=== PATIENT | female | born 1970 | race Caucasian/White ===

== ENCOUNTER → 2020-04-07 10:50 | Outpatient (BNVA) | payer OTHER, SELFPAY | PROVIDERS: PCP Internal Medicine; Referring Provider Internal Medicine; Visit Provider Surgery | DX: Z76.89 Persons encountering health services in other specified circumstances (principal) ==

== ENCOUNTER → 2020-04-21 08:18 | Outpatient (BNVA) | payer OTHER, SELFPAY | PROVIDERS: PCP Family Medicine; Referring Provider Family Medicine; Visit Provider Surgery | DX: Z76.89 Persons encountering health services in other specified circumstances (principal) ==

== ENCOUNTER 2020-04-22 12:14 | Outpatient (REF) | payer OTHER, SELFPAY ==
[2020-04-23 13:53] LABS: H Pylori Breath Test NOT DETECTED (NOT DETECTED)
== END 2020-04-22 12:15 | disposition home or self-care (01) ==
LOC: HO.LNP 12:14
PROVIDERS: PCP Family Medicine; Visit Provider Physician Assistant
DX: A04.8 Other specified bacterial intestinal infections (principal)
CPT/HCPCS: 83013

== ENCOUNTER → 2020-05-05 08:24 | Outpatient (BNVA) | payer OTHER, SELFPAY | PROVIDERS: PCP Family Medicine; Referring Provider Family Medicine; Visit Provider Dietitian, Registered | DX: Z76.89 Persons encountering health services in other specified circumstances (principal) ==

== ENCOUNTER 2020-05-12 10:40 | Outpatient (REF) | payer OTHER, SELFPAY ==
--- NOTE | 2020-05-12 11:13 | ECG_ITS ---
Test Reason : CP Blood Pressure : / mmHG Vent. Rate : 063 BPM Atrial Rate : 063 BPM P-R Int : 152 ms QRS Dur : 082 ms QT Int : 428 ms P-R-T Axes : 062 059 025 degrees QTc Int : 437 ms Normal sinus rhythm Normal ECG No previous ECGs available Referred By: Lindsay Cole Electronically Signed By:NAA COMER MD
--- NOTE | 2020-05-12 11:26 | XR_ITS ---
EXAMINATION: XR CHEST CLINICAL INFORMATION: Shortness of breath COMPARISON: None TECHNIQUE: 2 views of the chest were obtained. FINDINGS: The cardiac and mediastinal contours are normal. The lungs are clear. There is no pleural effusion or pneumothorax. There are degenerative changes of the spine. XR/XR chest 2V IMPRESSION: No evidence for acute disease in the chest.
[2020-05-12 11:29] LABS: MANUAL DIFF FLAG NO
[2020-05-12 11:42] LABS: Basophils Percent Auto 0.5 % (0-2); Eosinophils Absolute Auto 0.3 X10*3/uL (0.0-0.4); Eosinophils Percent Auto 3.9 % (0-4); Hematocrit 46.6 % (37-47); Hemoglobin 15.4 g/dl (12.0-16.0); Imm Gran Abs Auto 0.01 X10*3/uL (0.00-0.03); Imm Gran Pct Auto 0.2 % (0.0-0.4); Lymphocytes Absolute Auto 1.5 X10*3/uL (1.2-4.9); Lymphocytes Percent Auto 23.3 % (20-40); Mean Corpuscular Volume 87.8 fL (80-98); Mean Platelet Volume 12.5 fL (9.4-12.3); Monocytes Absolute Auto 0.8 X10*3/uL (0.1-1.2); Monocytes Percent Auto 11.6 % (2-11); Neutrophils Absolute Auto 3.9 X10*3/uL (2.0-8.3); Neutrophils Percent Auto 60.5 % (45-73); Platelet Count 206 X10*3/uL (160-400); Red Blood Count 5.31 X10*6/uL (4.20-5.50); Red Cell Distribution Width 13.5 % (11.0-16.0); White Blood Count 6.5 X10*3/uL (4.8-10.8)
[2020-05-12 12:22] LABS: Vitamin B12 525 pg/mL (200-900)
[2020-05-12 12:56] LABS: Alanine Aminotransferase 28 U/L (0-31); Albumin Level 4.2 g/dL (3.5-5.0); Alkaline Phosphatase 85 U/L (39-117); Anion Gap 14 (12-20); Aspartate Amino Transferase 24 U/L (5-31); Bilirubin Total 0.5 mg/dL (0.0-1.0); Blood Urea Nitrogen 25 mg/dL (9-16); C Reactive Protein 3.42 mg/dL (< or = 0.50); Carbon Dioxide 21 mmol/L (22-29); Chloride 106 mmol/L (96-108); Cholesterol 228 mg/dL; Estimated Glomerular Filt Rate > 60; Glucose Fasting 98 mg/dL (60-99); HDL Cholesterol 40 mg/dL; Iron 87 mcg/dL (30-160); LDL Cholesterol Calculated 162 mg/dl; Percent Iron Saturation 26 % (15-50); Potassium 4.3 mmol/l (3.3-5.1); Sodium 137 mmol/L (135-145); Total Iron Binding Capacity 333 mcg/dL (228-428); Total Protein 7.5 g/dL (6.5-8.0); Triglycerides 131 mg/dL; Unsaturated Iron Binding 246 ug/dL
[2020-05-12 13:16] LABS: Thyroid Stimulating Hormone 2.52 uIU/mL (0.32-4.0); Vitamin D 25-OH Total 31.6 ng/mL (>30)
[2020-05-13 17:01] LABS: Calcium (PTHI) 9.1 mg/dL (8.6-10.2); PTHI 53 pg/mL (14-64)
[2020-05-15 06:43] LABS: Zinc 92 mcg/dL (60-130)
[2020-05-16 08:12] LABS: Vitamin B1 <6 nmol/L (8-30)
[2020-05-16 22:23] LABS: Vitamin A 61 mcg/dL (38-98)
== END 2020-05-12 10:41 | disposition home or self-care (01) ==
LOC: HO.LAB 10:40
PROVIDERS: PCP Family Medicine; Visit Provider Surgery
DX: Z01.818 Encounter for other preprocedural examination (principal); R07.9 Chest pain, unspecified
CPT/HCPCS: 36415; 71046; 80053; 80061; 82306; 82607; 83540; 83970; 84425; 84443; 84590; 84630; 85025; 86140; 93005

== ENCOUNTER → 2020-05-19 10:25 | Outpatient (BNVA) | payer OTHER, SELFPAY | PROVIDERS: PCP Family Medicine; Referring Provider Family Medicine; Visit Provider Surgery ==

== ENCOUNTER → 2020-05-27 08:09 | Outpatient (BNVA) | payer OTHER, SELFPAY | PROVIDERS: PCP Family Medicine; Visit Provider Dietitian, Registered ==

== ENCOUNTER → 2020-06-12 10:51 | Outpatient (BNVA) | payer OTHER, SELFPAY | PROVIDERS: PCP Family Medicine; Visit Provider Surgery ==

== ENCOUNTER → 2020-07-03 10:37 | Outpatient (BNVA) | payer OTHER, SELFPAY | PROVIDERS: PCP Family Medicine; Visit Provider Surgery ==

== ENCOUNTER → 2020-07-17 10:28 | Outpatient (BNVA) | payer OTHER, SELFPAY | PROVIDERS: PCP Family Medicine; Visit Provider Physician Assistant ==

== ENCOUNTER → 2020-08-04 09:42 | Outpatient (BNVA) | payer OTHER, SELFPAY | PROVIDERS: PCP Family Medicine; Visit Provider Surgery ==

== ENCOUNTER 2020-08-13 06:10 | Inpatient (IN) | payer OTHER, SELFPAY ==
[2020-08-01 10:46] VITALS: BMI 41.0
--- NOTE | 2020-08-04 11:31 | ECG_ITS ---
Test Reason : R06.02 SOB Blood Pressure : / mmHG Vent. Rate : 051 BPM Atrial Rate : 051 BPM P-R Int : 152 ms QRS Dur : 088 ms QT Int : 458 ms P-R-T Axes : 046 055 027 degrees QTc Int : 422 ms Sinus bradycardia Otherwise normal ECG When compared with ECG of 12-MAY-2020 11:20, No significant change was found Referred By: Lindsay Cole Electronically Signed By:NAA COMER MD
[2020-08-04 11:52] LABS: MANUAL DIFF FLAG NO
[2020-08-04 12:00] LABS: Basophils Percent Auto 0.5 % (0-2); Eosinophils Absolute Auto 0.3 X10*3/uL (0.0-0.4); Eosinophils Percent Auto 3.1 % (0-4); Hematocrit 46.2 % (37-47); Hemoglobin 15.1 g/dl (12.0-16.0); Imm Gran Abs Auto 0.02 X10*3/uL (0.00-0.03); Imm Gran Pct Auto 0.2 % (0.0-0.4); Lymphocytes Absolute Auto 1.6 X10*3/uL (1.2-4.9); Mean Corpuscular HGB Conc 32.7 g/dl (31.0-35.0); Mean Corpuscular Hemoglobin 28.8 pg (27.0-33.0); Mean Corpuscular Volume 88.2 fL (80-98); Mean Platelet Volume 11.9 fL (9.4-12.3); Monocytes Absolute Auto 0.7 X10*3/uL (0.1-1.2); Monocytes Percent Auto 8.1 % (2-11); Neutrophils Absolute Auto 5.6 X10*3/uL (2.0-8.3); Neutrophils Percent Auto 69.1 % (45-73); Platelet Count 235 X10*3/uL (160-400); Red Blood Count 5.24 X10*6/uL (4.20-5.50); Red Cell Distribution Width 13.8 % (11.0-16.0); White Blood Count 8.2 X10*3/uL (4.8-10.8)
[2020-08-04 12:13] LABS: Prothrombin Time 12.4 SEC (10.8-13.0)
[2020-08-04 12:16] LABS: Partial Thromboplastin Time 37.1 SEC (24.1-38.0)
[2020-08-04 12:34] LABS: Albumin Level 4.2 g/dL (3.5-5.0); Anion Gap 13 (12-20); Blood Urea Nitrogen 22 mg/dL (9-16); Carbon Dioxide 25 mmol/L (22-29); Chloride 104 mmol/L (96-108); Creatinine Clr Calc Pharmacy 95.1; Estimated Glomerular Filt Rate > 60; Glucose Random 92 mg/dL (60-115); Potassium 4.4 mmol/L (3.3-5.1); Sodium 138 mmol/L (135-145)
[2020-08-04 13:29] LABS: Glucose Urine UA NEG (NEG); Leukocyte Esterase Urine NEG (NEG); Nitrite Urine NEG (NEG); PH 5.5 (5.0-8.0); Specific Gravity - Urine >= 1.030 (1.005-1.025); Urine Blood NEG (NEG); Urine Ketones NEG (NEG); Urine Protein NEG (NEG-TRACE)
[2020-08-04 13:37] LABS: Appearance Urine CLEAR; Color Urine YELLOW
[2020-08-04 13:38] LABS: UPreg QC Valid YES; Urine Pregnancy NEGATIVE (NEGATIVE)
[2020-08-11 08:26] LABS: Vitamin B1 6 nmol/L (8-30)
--- NOTE | 2020-08-11 15:38 | MHC.SHP ---
Pre-Procedural Eval Section B Chief Complaint: obesity Allergies: Allergies Allergy/AdvReac Type Severity Reaction Status Date / Time amoxicillin Allergy Mild Hives Verified 08/04/20 10:37 hydrochlorothiazide AdvReac Mild elevated Verified 08/04/20 10:37 creatinine Plan I have reviewed the history and physical and performed a pertinent physical examination on my patient. No changes have occurred unless specified.
--- NOTE | 2020-08-12 09:18 | HO.ANESPROP2 ---
Documented by User: Chelo Brooks 08/12/20 09:19 HPI - Anesthesia Eval Consult details Narrative: 50yo F for Gastric Bypass Laprascopic PMFSH Active Problems Active Problems: All Active Problems (Updated 08/01/20 @ 10:48 by Mulu Xavier) Morbid obesity due to excess calories (Acute) Preoperative examination (Acute) Shortness of breath (Acute) Vitamin B1 deficiency (Acute) BMI 40.0-44.9, adult (Acute) Past Medical History Medical History (Updated 08/13/20 @ 07:49 by Ellen Williamson) Bipolar II disorder BMI 40.0-44.9, adult COVID-19 vaccine administered Elevated cholesterol Endometriosis GERD (gastroesophageal reflux disease) HTN (hypertension) Hypothyroidism Obstructive sleep apnea Family History Family History Father Chronic emphysema syndrome High cholesterol Prediabetes Mother Multiple sclerosis Hypertension Brother Heart attack High cholesterol Surgical History Surgical History Hx laparoscopic cholecystectomy Hx of hysterectomy Social History Social History Are you a primary customer care agent to a significant other at home: No Do you presently have visiting nurse or other home services: No Alcohol intake: current Alcohol intake frequency: holidays/special occasions only Smoking Status: Never smoker Use of substances other than those prescribed or required for medical reasons: No Have you been hit, kicked, punched, or otherwise hurt by someone within the past year? If so, by whom?: No Advance Directives Information Provided: No Recently lost weight without trying: No Meds Allergies Allergy/AdvReac Type Severity Reaction Status Date / Time amoxicillin Allergy Mild Hives Verified 08/04/20 10:37 hydrochlorothiazide AdvReac Mild elevated Verified 08/04/20 10:37 creatinine Home Medications Medication Instructions Recorded Confirmed Last Taken Type amlodipine 5 mg tablet 5 mg PO DAILY 04/07/20 08/04/20 08/13/20 History cariprazine 1.5 mg capsule 1.5 mg PO DAILY 04/07/20 08/04/20 08/13/20 History fluoxetine 40 mg capsule 40 mg PO DAILY 04/07/20 08/04/20 08/13/20 History levothyroxine 50 mcg capsule 50 mcg PO DAILY 04/07/20 08/04/20 08/13/20 History quetiapine 100 mg tablet 100 mg PO BEDTIME 04/07/20 08/04/20 Unknown History cholecalciferol (vitamin D3) 50 50 mcg PO DAILY 04/21/20 08/04/20 Unknown History mcg (2,000 unit) capsule Exam Exam Date and Time: August 12, 2020 0918 Height,Weight and Vital Signs: Height 5 ft 6.5 in Weight 117.027 kg Pertinent Lab Results Pertinent Lab Results: Laboratory Tests 08/04/20 08/04/20 08/04/20 11:20 11:20 11:20 WBC 8.2 RBC 5.24 Hgb 15.1 Hct 46.2 MCV 88.2 MCH 28.8 MCHC 32.7 RDW 13.8 Plt Count 235 MPV 11.9 Immature Gran % (Auto) 0.2 Neut % (Auto) 69.1 Lymph % (Auto) 19.0 L [place] % (Auto) 8.1 Eos % (Auto) 3.1 Baso % (Auto) 0.5 Lymph # (Auto) 1.6 [place] # (Auto) 0.7 Eos # (Auto) 0.3 Baso # (Auto) 0.0 Abs Immat Gran (auto) 0.02 Absolute Neuts (auto) 5.6 Absolute Nucleated RBC 0.000 Nucleated RBC % (auto) 0.0 PT 12.4 INR 1.0 APTT 37.1 Sodium Potassium Chloride Carbon Dioxide Anion Gap BUN Creatinine Estim Creat Clear Calc Estimated GFR Random Glucose Calcium Albumin Vitamin B1 Urine Color YELLOW Urine Appearance CLEAR Urine pH 5.5 Ur Specific [place] >= 1.030 H Urine Protein NEG Urine Glucose (UA) NEG Urine Ketones NEG Urine Blood NEG Urine Nitrite NEG Ur Leukocyte Esterase NEG Urine Test Blood Type Antibody Screen 08/04/20 08/04/20 08/04/20 11:20 11:20 11:20 WBC RBC Hgb Hct MCV MCH MCHC RDW Plt Count MPV Immature Gran % (Auto) Neut % (Auto) Lymph % (Auto) [place] % (Auto) Eos % (Auto) Baso % (Auto) Lymph # (Auto) [place] # (Auto) Eos # (Auto) Baso # (Auto) Abs Immat Gran (auto) Absolute Neuts (auto) Absolute Nucleated RBC Nucleated RBC % (auto) PT INR APTT Sodium 138 Potassium 4.4 Chloride 104 Carbon Dioxide 25 Anion Gap 13 BUN 22 H Creatinine 0.94 Estim Creat Clear Calc 95.1 Estimated GFR > 60 Random Glucose 92 Calcium 9.0 Albumin 4.2 Vitamin B1 6 L Urine Color Urine Appearance Urine pH Ur Specific [place] Urine Protein Urine Glucose (UA) Urine Ketones Urine Blood Urine Nitrite Ur Leukocyte Esterase Urine Test NEGATIVE Blood Type Antibody Screen 08/04/20 11:20 WBC RBC Hgb Hct MCV MCH MCHC RDW Plt Count MPV Immature Gran % (Auto) Neut % (Auto) Lymph % (Auto) [place] % (Auto) Eos % (Auto) Baso % (Auto) Lymph # (Auto) [place] # (Auto) Eos # (Auto) Baso # (Auto) Abs Immat Gran (auto) Absolute Neuts (auto) Absolute Nucleated RBC Nucleated RBC % (auto) PT INR APTT Sodium Potassium Chloride Carbon Dioxide Anion Gap BUN Creatinine Estim Creat Clear Calc Estimated GFR Random Glucose Calcium Albumin Vitamin B1 Urine Color Urine Appearance Urine pH Ur Specific [place] Urine Protein Urine Glucose (UA) Urine Ketones Urine Blood Urine Nitrite Ur Leukocyte Esterase Urine Test Blood Type A Negative Antibody Screen NEGATIVE Narrative Narrative: EKG 07/2020 Vent. Rate : 051 BPM Atrial Rate : 051 BPM P-R Int : 152 ms QRS Dur : 088 ms QT Int : 458 ms P-R-T Axes : 046 055 027 degrees QTc Int : 422 ms Sinus bradycardia Otherwise normal ECG When compared with ECG of 12-MAY-2020 11:20, No significant change was found Assessment and Plan Assessment Anesthesia Assessment: Chart Reviewed Documented by User: Ellen Williamson 08/13/20 07:52 [facility] Past Medical History Medical History (Updated 08/13/20 @ 07:49 by Ellen Williamson) Bipolar II disorder BMI 40.0-44.9, adult COVID-19 vaccine administered Elevated cholesterol Endometriosis GERD (gastroesophageal reflux disease) HTN (hypertension) Hypothyroidism Obstructive sleep apnea Family History Family History Father Chronic emphysema syndrome High cholesterol Prediabetes Mother Multiple sclerosis Hypertension Brother Heart attack High cholesterol Family history of problems with anesthesia: No Surgical History Surgical History Hx laparoscopic cholecystectomy Hx of hysterectomy History of Problems with Anesthesia: No Social History Social History Are you a primary customer care agent to a significant other at home: No Do you presently have visiting nurse or other home services: No Alcohol intake: current Alcohol intake frequency: holidays/special occasions only Smoking Status: Never smoker Use of substances other than those prescribed or required for medical reasons: No Have you been hit, kicked, punched, or otherwise hurt by someone within the past year? If so, by whom?: No Advance Directives Information Provided: No Recently lost weight without trying: No Meds Allergies Allergy/AdvReac Type Severity Reaction Status Date / Time amoxicillin Allergy Mild Hives Verified 08/04/20 10:37 hydrochlorothiazide AdvReac Mild elevated Verified 08/04/20 10:37 creatinine Home Medications Medication Instructions Recorded Confirmed Last Taken Type amlodipine 5 mg tablet 5 mg PO DAILY 04/07/20 08/04/20 08/13/20 History cariprazine 1.5 mg capsule 1.5 mg PO DAILY 04/07/20 08/04/20 08/13/20 History fluoxetine 40 mg capsule 40 mg PO DAILY 04/07/20 08/04/20 08/13/20 History levothyroxine 50 mcg capsule 50 mcg PO DAILY 04/07/20 08/04/20 08/13/20 History quetiapine 100 mg tablet 100 mg PO BEDTIME 04/07/20 08/04/20 Unknown History cholecalciferol (vitamin D3) 50 50 mcg PO DAILY 04/21/20 08/04/20 Unknown History mcg (2,000 unit) capsule Exam Height,Weight and Vital Signs: Vital Signs Temp Pulse Resp BP Pulse Ox 08/13/20 06:21 96.4 F L 63 18 116/63 96 Laboratory Results - last 24 hr 08/13/20 06:03 COVID-19 (MARTHA) Negative COVID-19 Clin Com See Note Airway Mallampati Class: III TM Dist: >3cm Neck ROM: Full Loose/Missing/Broken Teeth: Yes (1 top right) Heart: RRR Lungs: CTAB Assessment and Plan Assessment Anesthesia Assessment: Anesthesia Plan Discussed and Chart Reviewed Final Anesthetic Review NPO: Yes ASA Class: III Final Preanesthetic Review: No Changes in Pt Med Stat, Meds/Allgs Chart Reviewed, Consent Obtained/Reviewed and Anes Risks/Benef Reviewed Patient Risk: Intermediate Procedure Risk: Intermediate Assessment/Block/Sedation in SS: Assess/Block/Sedation-SS Anesthetic Plan Anesthetic Plan: GA Disposition: Inp. Admit - Standard Bed
[2020-08-13] VITALS (12 sets, daily range): BP systolic 116–141; BP diastolic 63–84; PULSE 63–94; RESP 12–20; TEMP 35.8–37; O2SAT 93–99
[2020-08-13] MEDS: Lactated Ringers 1,000 ML 100 ML IVCONT (06:36)
[2020-08-13 06:38] LABS: COVID-19 Test Negative (Negative); IDNOW Serial# 9DD0AD1C
--- NOTE | 2020-08-13 12:30 | PM.OP ---
Brief Operative Note Date of Service: 08/13/20 Pre-op diagnosis: Morbid obesity, BMI 40.3, GERD, hypertension, sleep apnea, hypercholesterolemia Post-op diagnosis: other (Same and hiatal hernia) Procedure: Laparoscopic Cliff-en-Y gastric bypass with 150 cm Cliff limb, hiatal hernia repair, Nicholas block, and intraoperative endoscopy Surgeon: Lindsay Cole MD Anesthesia: GETA Estimated blood loss (mL): 5 Pathology: none sent Condition: stable Disposition: PACU
--- NOTE | 2020-08-13 12:33 | P.OP_ITS ---
Operative Note Operative Note Date of Service: 08/13/20 Narrative: Patient was brought into the operating room and placed on the operating room table in the supine position. General anesthesia was induced. Normal DVT prophylaxis was instituted and the patient received 2 grams of cefotetan preoperatively. The abdomen was then prepped and draped in the normal sterile fashion. A safety time-out was performed. A mixture of 1% lidocaine with epinephrine and ?% Marcaine plain was used to an esthetize the planned incision site in the left upper quadrant. A #11 scalpel was used to make a 5 mm left upper quadrant transverse incision through which a veress needle was placed. Three pops were heard going through the fascia. A saline drop test was used to confirm that the veress needle was intraabdominal. An optiview technique was then used to place a 5mm port in the left upper quadrant. A 5 mm 30 degree laproscope was then placed through this port and the abdominal cavity was surveyed and was normal. The patient was placed in reverse Trendelenburg positioning. A jada liver retractor was then placed in the subxyphoid position and it was used to hold up the left lobe of the liver to the abdominal wall. This was secured to the bed using the liver retractor queen. A NEGRA block was then performed for pain control on the right side of the abdomen. A 5 mm port was placed in the right upper quadrant near the falciform ligament. A 12 mm port was then placed in the mid epigastrium. One additional 5 mm port was placed in the left upper quadrant just to the left of the placement of the first port. I then performed a NEGRA block on the left side of the abdomen. We lifted up the transverse colon mesentery and visualized the ligament of Trietz. I then counted 40 cm from the ligament of Trietz and created a small window in the small bowel mesentery. I then stapled across the antimesenteric surface of the small bowel at the at the 40 cm jesus. The proximal limb is the biliopancreatic limb and the distal transected bowel will be the mariah limb. I divided the mesentery at the 40 cm jesus parallel to the blood vessels in the mesentery for a short distance to be able to bring up the mariah limb to the gastric pouch later. I counted 150 cm from the distally transected bowel and sutured the the mariah limb at 150 cm to the biliopancreatic limb using the endostich and a 2-0 ethibond. I then created 2 enterotomies in the lined up limbs of bowel using the hook cautery. I lengthened the enterotomies using the ligasure device and created a common anastomosis using a 60 mm rolle load endostapler. I stapled the common enterotomy transversely to prevent stricture. I then closed the mesenteric defect at the anastomosis with a 2-0 ethibond running endostich suture. I then created the gastric pouch. I removed the epigastric fat pad and opened up the angle of His. There was a small anterior hiatal hernia. We reapproximated the right and left crura anteriorly with 1 single stitch of 2-0 Ethibond in a laparoscopic knot pusher and there is no residual hiatal hernia.. I gained entry into the lesser sac on the lesser curvature of the stomach by dividing a portion of the pars lucida. I fired a 60 mm purple endostapler transversely across the stomach about 4 cm distal to the GE junction. I then fired an additional 2 firings of a 60 mm purple load stapler vertically up the stomach to the angle of His to complete the gastric pouch. The staple line was hemostatic. I brought the mariah limb up to the gastric pouch and sutured the mariah limb serosa to the gastric pouch serosa posterior to the transverse staple line using a 2-0 ethibond running stitch using the endostitch. I created a gastrotomy and enterotomy in the adjacent mariah limb. I lengthened the gastrotomy and enterotomy using the ligasure. I sutured the posterior wall of the stomach and the mariah limb together using a 0 vicryl running stitch. I sutured the anterior wall of the stomach and mariah limb together using another running 0-vicryl stitch. The the anterior serosa of stomach and mariah limb were sutured using a 2-0 ethibond running stitch for a double layer anterior and posterior closure of the gastrojejunostomy. I then clamped across the mariah limb distal to the anastomosis using a fired 60 mm stapler. I flatted the patient and instilled normal saline around the new anastomosis. I performed an on-talbe endoscopy. The gastric pouch mucosa was pink without any active bleeding the anastomosis was visably patent. I insufflated the gastric pouch and anastomosis. There was no evidence of leak on laparoscopy. I desufflated the gastric pouch and removed the endoscopy. I removed the endostapler from the abdomen and suctioned the fluid from the left upper quadrant. We placed a 10 mm Jake-Gomez drain adjacent to the newly created anastomosis at the gastric jejunum. We brought the tubing out of the right upper quadrant 5 mm port site and secured the tubing to the abdominal wall using a 2-0 nylon suture. We placed this drain to bulb suction. We removed the 12 mm port and closed the defect with a 0 maxon suture and laparoscopic suture passer. We instilled local anesthetic into the fascial closure site and tied the suture down at a pressure of 8-10 mm of Hg. I removed the jada liver retractor and the left upper quadrant ports. There was no evidence active bleeding. I removed the last port and laparoscopy. We reapproximated all skin incisions using 4-0 monocryl subcuticular stitch. We cleaned and dried the skin and applied dermabond to all skin incisions. All counts were correct at the end of the case . There were no complications. The patient was awake and in stable condition prior to extubation and transfer to the recovery room.
[2020-08-13] MEDS: ondansetron HCL 4 MG/2 ML VIAL IVPUSH ×2 (13:02→22:45)
[2020-08-13] MEDS: Lactated Ringers 1,000 ML 150 ML IVCONT ×2 (13:10→19:52)
[2020-08-13] MEDS: Metoclopramide HCl 10 MG/2 ML VIAL IVPUSH (19:52)
[2020-08-13] MEDS: Famotidine/PF 20 MG/2 ML VIAL IVPUSH (21:12)
[2020-08-13] MEDS: 0.9 % Sodium Chloride Flush 3 ML SYRINGE IVFLUSH (21:12)
[2020-08-13] MEDS: cefoTEtan disodium 2 GM in 0.9 % Sodium Chloride 50 ML IV (21:12)
--- NOTE | 2020-08-13 21:36 | P.PNGS_ITS ---
Subjective Subjective Date of Service: 08/14/20 <Betty Cohen PA-C - Last Filed: 08/14/20 12:57> 08/14/20 <Lindsay Cole MD - Last Filed: 08/14/20 09:42> Interval history: POD #1: Patient is doing well. Has been ambulating, using the incentive spirometer, and tolerating po liquids. No nausea or abdominal pain. Has some mild incisional pain. <Betty Cohen PA-C - Last Filed: 08/14/20 12:57> This is a 50-year-old lady on postoperative day 1. Status post laparoscopic Cliff-en-Y gastric bypass with hiatal hernia repair doing well. Patient is tolerating stage II diet without difficulty. She has been up and ambulating in the hallway. She is using her incentive spirometer. Her vital signs and blood work are within normal limits for day 1 after the above-noted surgery. Patient denies nausea vomiting. Her pain is well controlled. On exam: Abdomen is soft nondistended mild appropriate incisional tenderness. Incisions are clean dry intact with Dermabond in place. Jake-Gomez drain in place in right upper quadrant shows scant serosanguineous drainage. Assessment and plan: This is a 50-year-old lady on postoperative day 1. Doing well status post laparoscopic Cliff-en-Y gastric bypass with hiatal hernia repair. Patient will continue stage II diet and then advanced to stage III diet. If she is tolerating stage III diet we will discontinue her Jake-Gomez drain the patient will be discharged home this afternoon. <Lindsay Cole MD - Last Filed: 08/14/20 09:42> Physical Exam Vital Signs: Vital Signs: Last Vital Signs Temp 98.6 F 08/13/20 19:16 Pulse 72 08/13/20 19:16 Resp 20 08/13/20 19:16 BP 130/77 08/13/20 19:16 Pulse Ox 94 08/13/20 19:16 Body Mass Index 41.0 <Betty Cohen PA-C - Last Filed: 08/14/20 12:57> Const: General: cooperative, comfortable, no acute distress, alert and awake <Betty Cohen PA-C - Last Filed: 08/14/20 12:57> Nutritional Appearance: obese <Betty Cohen PA-C - Last Filed: 08/14/20 12:57> GI: Inspection: Yes normal to inspection, Yes incision (normal, slight erythema at site of surgical glue, no tenderness/warmth/drai) and Yes obesity <Betty Cohen PA-C - Last Filed: 08/14/20 12:57> Extrem: Right lower extremity: lower leg Details: no tenderness; no edema <Betty Cohen PA-C - Last Filed: 08/14/20 12:57> Left lower extremity: lower leg Details: no tenderness; no edema <Betty Cohen PA-C Sonali Last Filed: 08/14/20 12:57> Progress Note: A&P Assessment and plan (1) Morbid obesity due to excess calories: Status: Acute <GABRIEL Olivo Last Filed: 08/14/20 12:57> (2) Hiatal hernia: Status: Acute <Betty Cohen PA-C - Last Filed: 08/14/20 12:57> (3) History of repair of hiatal hernia: Status: Acute <GABRIEL Olivo Last Filed: 08/14/20 12:57> (4) Intestinal malabsorption following gastrectomy: Status: Acute <Betty Cohen PA-C Sonali Last Filed: 08/14/20 12:57> (5) S/P gastric bypass: Status: Acute <GABRIEL Olivo Last Filed: 08/14/20 12:57> Assessment and Plan: POD #1: Patient is doing well and will be discharged home today. All the discharge instructions were reviewed with the patient and given in writing. Patient will follow up as scheduled in 2 weeks. <Betty Cohen PA-C - Last Filed: 08/14/20 12:57> Fall Risk Details Current Medications: Current Medications Generic Name Dose Route Start Last Admin Trade Name Freq PRN Reason Stop Dose Admin Famotidine 20 mg 08/13/20 21:00 08/13/20 21:12 Famotidine/Pf 20 Mg/2 Ml Vial IVPUSH 20 mg BID MEY Administration Hydromorphone HCl 0.25 mg 08/13/20 14:27 Hydromorphone Hcl 0.5 Mg/0.5 Ml Syringe IVPUSH Q4H PRN Pain, Severe (Pain Scale 7-10) Lactated Ringer's 1,000 mls @ 150 mls/hr 08/13/20 14:09 08/13/20 19:52 Lr IVCONT 150 mls/hr .[id number] MEY Administration Acetaminophen 1,000 mg in 100 mls @ 16.7 mls/hr 08/13/20 14:27 08/13/20 21:13 Ofirmev IV 08/16/20 14:18 16.7 mls/hr .Q6H MEY Administration Metoclopramide HCl 10 mg 08/13/20 14:27 08/13/20 19:52 Metoclopramide Hcl 10 Mg/2 Ml Vial IVPUSH 10 mg Q6H PRN Administration Nausea Ondansetron HCl 4 mg 08/13/20 14:27 08/13/20 14:38 Ondansetron Hcl 4 Mg/2 Ml Vial IVPUSH Not Given Q8H MEY Sodium Chloride 3 ml 08/13/20 16:00 08/13/20 21:12 0.9 % Sodium Chloride Flush 3 Ml Syringe IVFLUSH 3 ml QSHIFT MEY Administration <Betty Cohen PA-C - Last Filed: 08/14/20 12:57> Time Spent With Patient Time: Total time spent is greater than 50% in coordination of care (as docume nted) at patient's floor/unit and/or counseling patient: <Betty Cohen PA-C - Last Filed: 08/14/20 12:57> Time with patient: less than 15 minutes <Lindsay Cole MD - Last Filed: 08/14/20 09:42>
--- NOTE | 2020-08-13 21:40 | PM.DS ---
DS: Providers Provider Date of Service: 08/14/20 Date of admission: 08/13/20 06:10 Primary care physician: Marta Rubi MD DS: Diagnosis Discharge Diagnosis (1) Morbid obesity due to excess calories: Status: Acute (2) Hiatal hernia: Status: Acute (3) History of repair of hiatal hernia: Status: Acute (4) Intestinal malabsorption following gastrectomy: Status: Acute (5) S/P gastric bypass: Status: Acute DS: Medications Discharge Medications Home Medications: Home Medications Medication Instructions Recorded Confirmed amlodipine 5 mg tablet 5 mg PO DAILY 04/07/20 08/04/20 cariprazine 1.5 mg capsule 1.5 mg PO DAILY 04/07/20 08/04/20 fluoxetine 40 mg capsule 40 mg PO DAILY 04/07/20 08/04/20 levothyroxine 50 mcg capsule 50 mcg PO DAILY 04/07/20 08/04/20 quetiapine 100 mg tablet 100 mg PO BEDTIME 04/07/20 08/04/20 cholecalciferol (vitamin D3) 50 50 mcg PO DAILY 04/21/20 08/04/20 mcg (2,000 unit) capsule Previous Rx's Medication Instructions Recorded docusate sodium 100 mg capsule 100 mg PO BID #30 cap 08/04/20 famotidine 20 mg tablet 20 mg PO DAILY #30 tab 08/04/20 ondansetron HCl 4 mg tablet 4 mg PO Q6H PRN #30 tab 08/04/20 simethicone 80 mg chewable tablet 80 mg PO TID-QID PRN #30 tab 08/04/20 DS: Summary Time Spent with Patient Time attestation: Total time spent providing and/or coordinating discharge services: Discharge coordination time: Greater than 30 minutes Physical Exam Vital Signs: Vital Signs: Last Vital Signs Temp 98.6 F 08/13/20 19:16 Pulse 72 08/13/20 19:16 Resp 20 08/13/20 19:16 BP 130/77 08/13/20 19:16 Pulse Ox 94 08/13/20 19:16 Body Mass Index 41.0 DS: Data Data Completed and Pending Labs on day of discharge: Laboratory Results - last 24 hr 08/13/20 06:03 COVID-19 ([facility]) Negative COVID-19 Clin Com See Note Discharge Plan Discharge Patient Disposition: Home, Self-Care Discharge Diagnosis: obesity s/p lap gastric bypass Referrals: Marta Rubi MD [Primary Care Provider] - 1 Week Discharge Medications: Continued cholecalciferol (vitamin D3) 50 mcg (2,000 unit) capsule 50 mcg PO DAILY RF: 0 ondansetron HCl [Zofran] 4 mg tablet 4 mg PO Q6H PRN (Reason: nausea and vomiting) Qty: 30 RF: 1 famotidine [Pepcid AC] 20 mg tablet 20 mg PO DAILY Qty: 30 RF: 1 docusate sodium [Colace] 100 mg capsule 100 mg PO BID Qty: 30 RF: 1 simethicone [Gas Relief (simethicone)] 80 mg tablet,chewable 80 mg PO TID-QID PRN (Reason: abdominal distention) Qty: 30 RF: 1 levothyroxine 50 mcg capsule 50 mcg PO DAILY RF: 0 Vraylar 1.5 mg capsule 1.5 mg PO DAILY RF: 0 fluoxetine 40 mg capsule 40 mg PO DAILY RF: 0 quetiapine [Seroquel] 100 mg tablet 100 mg PO BEDTIME RF: 0 amlodipine 5 mg tablet 5 mg PO DAILY RF: 0 Discharge Orders: Discharge Order (Routine); Ordered 08/14/20 Ordered By: Betty Cohen Diet: other Activity on Discharge: No heavy lifting Stand Alone Forms: Patient Portal Discharge page Activity Restrictions/Additional Instructions: Discharge Instructions 1. Please call your doctor or come back to the emergency room should any new symptoms arise. 2. You will receive a courtesy call from [facility] 24-48 hours after discharge. 3. Activity: abstain from alcohol, practice limited stair climbing, no bending, no driving, no exercise, no illicit substances, no lifting, no sex, no tub bath, no work. 4. Diet: continue stage 3 protein shakes until your [address] Cole. 5. Dressing Change/Wound Care: Your incision is covered by surgical glue. If the area is tender, you may apply an ice pack for short intervals (no more than 20 minutes on, followed by at least 20 minutes off). Do not apply heat. Do not use creams, lotions, or topical antibiotics unless instructed to do so by your surgeon. These can cause infection or allergic reaction. 6. Call your doctor if: - Your temperature exceeds 101.5 F - You experience excessive pain or swelling - You have an unexpected reaction to medication - You have excessive bleeding - You experience continued vomiting/nausea - Your incision begins to separate - Your incision shows signs of infection such as increased redness, swelling, excessive pain, heat, or drainage (light blood or clear fluid is normal) 7. General instructions: - No lifting greater than 5 lbs for the next 4 weeks. - No driving within 24 hours of taking narcotic pain medications. - If you do not move your bowels in the next 2 days, please take milk of magnesia over the counter. Please follow the post op diet and do not advance your diet until you are seen in the office in about 2 weeks. - Please walk around your home every hour or two to prevent blood clots from forming in your legs. You do not need to wake from sleeping to walk. - Please sleep in a bed or couch to prevent kinking at the hips and knees. - Please take your incentive spirometer (your lung adult basic studies teacher) home with you and use it for the next few days to prevent pneumonias. - You may shower, no hot tubs, baths or swimming pools. - Please call the office with any questions or concerns such as increasing abdominal pain, fever, chills, shortness of breath, chest pain, leg pain or swelling, or redness or drainage from your incisions. - Please stay on stage 3 diet which includes sugar free clear liquids such as ice pops and jello and broth and crystal light. Avoid all carbonation. Please drink 3 protein shakes with at least 25-30 grams of protein daily or 3 of the Celebrate 4:1 shakes which can be purchased in our office. The Celebrate shakes have all of the bariatric vitamins you need if you consume these shakes. If you are drinking other protein shakes, you will need to purchase the Celebrate multivitamins and calcium that we provide in the office (they will provide all the vitamins you need). Please make sure you are consuming at least 40-60 ounces of water in addition to your 3 protein shakes daily. 8. Do not hesitate to contact the office with any questions at . Discharge Summary Admitting Diagnosis: Morbid obesity, BMI 40.3, GERD, hypertension, sleep apnea, hypercholesterolemia Discharge Diagnosis: other (Same and hiatal hernia) Procedure Performed: Laparoscopic Cliff-en-Y gastric bypass with 150 cm Cliff limb, hiatal hernia repair, Nicholas block, and intraoperative endoscopy Discharge Medications: 1. Simethicone 80mg tablet chewable (Si tablet every 6 hours orally for 7 days, #28, 1 RF) q4h prn gas 2. Acetaminophen 500 mg tablet (Si tablets as needed every 6 hours orally for 30 days, #240, 0 RF) 3. Ondansetron 4 mg tablet disintegrating (Si tablet every 6 hours orally for 7 days, #28, 1 RF) 4. Colace 100 mg capsule (Si capsule twice a day for 30 days, #60, 2 RF) 5. Pepcid 20 mg chewable tablet (Si tablet twice a day for 30 days, #60, 3 RF) Discharge Instructions: The patient should continue on the stage III bariatric diet, which includes 3 protein shakes of at least 20-30g of protein on a daily basis. The patient was encouraged to avoid drinking liquids with her protein shakes. They should wait 30-45 minutes in between her meals and drinking water. She should drink at least 40-60 ounces of water on a daily basis. They should ambulate while at home to avoid any blood clots in her lower extremities. They should call with any questions or concerns such as increase in abdominal pain, persistent nausea, vomiting, redness and drainage from her incisions, fever, chills, shortness of breast, or chest pain beyond what is normal for her. The patient should avoid all heavy lifting greater than 5 pounds for the next 4 weeks. The patient is already scheduled to follow up with me in 2 weeks time, but should call the office with any questions prior to that follow up appointment. The patient should not advance their diet until they are seen in the office for the 2 week appointment. Hospital Course: The patient was admitted after undergoing LRYGB. They were started on stage II (1 oz of fluid every 15 minutes) on POD #0. The next morning they were evaluated and started on stage III diet (protein shakes). All labs were within normal limits. On post-operative day #1 she was feeling better, nausea and epigastric pain improved and they were tolerating stage III bariatric diet well. The patient was discharged home. Discharge Disposition: Home. Care Plan Goals: weight loss, improved GERD Health Concerns: obesity, GERD Plan of Treatment: LRYGB Assessment: Assessed on post operative day #1 and ready to be discharged home, follow up 2 weeks in office
[2020-08-14] MEDS: Lactated Ringers 1,000 ML 150 ML IVCONT (03:00)
[2020-08-14 03:57] VITALS: BP 137/73; PULSE 69; RESP 20; TEMP 36.4; O2SAT 96
[2020-08-14] MEDS: ondansetron HCL 4 MG/2 ML VIAL IVPUSH (06:28)
[2020-08-14 07:26] LABS: MANUAL DIFF FLAG NO
[2020-08-14 07:36] LABS: Basophils Percent Auto 0.2 % (0-2); Hematocrit 39.6 % (37-47); Hemoglobin 13.3 g/dl (12.0-16.0); Imm Gran Pct Auto 0.6 % (0.0-0.4); Lymphocytes Absolute Auto 0.8 X10*3/uL (1.2-4.9); Lymphocytes Percent Auto 4.3 % (20-40); Mean Corpuscular HGB Conc 33.6 g/dl (31.0-35.0); Mean Corpuscular Hemoglobin 29.4 pg (27.0-33.0); Mean Corpuscular Volume 87.4 fL (80-98); Mean Platelet Volume 12.5 fL (9.4-12.3); Monocytes Absolute Auto 1.2 X10*3/uL (0.1-1.2); Monocytes Percent Auto 6.5 % (2-11); Neutrophils Percent Auto 88.4 % (45-73); Platelet Count 103 X10*3/uL (160-400); Red Blood Count 4.53 X10*6/uL (4.20-5.50); Red Cell Distribution Width 13.8 % (11.0-16.0); White Blood Count 18.1 X10*3/uL (4.8-10.8)
[2020-08-14 08:00] VITALS: BP 132/74; PULSE 61; RESP 16; TEMP 36.4; O2SAT 95
[2020-08-14 08:07] LABS: Anion Gap 13 (12-20); Blood Urea Nitrogen 14 mg/dL (9-16); Calcium 8.2 mg/dL (8.4-10.2); Carbon Dioxide 22 mmol/L (22-29); Chloride 107 mmol/L (96-108); Creatinine Clr Calc Pharmacy 96.2; Estimated Glomerular Filt Rate > 60; Glucose Random 107 mg/dL (60-115); Sodium 138 mmol/L (135-145)
[2020-08-14] MEDS: Famotidine/PF 20 MG/2 ML VIAL IVPUSH (08:31)
[2020-08-14] MEDS: Levothyroxine Sodium 50 MCG TABLET PO (10:25)
[2020-08-14] MEDS: FLUoxetine HCl 20 MG CAPSULE 40 MG PO (10:26)
[2020-08-14 10:27] VITALS: BP 132/64; PULSE 72
[2020-08-14] MEDS: amLODIPine Besylate 5 MG TABLET PO (10:27)
[2020-08-14] MEDS: Cariprazine HCl 1.5 MG CAPSULE PO (11:06)
--- NOTE | 2020-08-14 12:08 | MHC.CM.PN ---
PATIENT IS FULLY INDEPENDENT WITH ALL ADLS. NO DME OR VNA SERVICES. 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 CURRENTLY, PATIENT IS HAVING DRAIN REMOVED. SHE IS AWARE THAT IF SHE HAS ANY QUESTIONS FOR CASE MANAGEMENT, RN CAN ASK FOR THIS CORRECTION OFFICER HEAD. PATIENT IS DC TODAY NO SERVICES
--- NOTE | 2020-08-15 09:44 | HO.POSTANES ---
Post Anesthesia Evaluation Post Anesthesia Evaluation Vital Signs: Patient seen on 08/14/20 at 7am. VSS Anesthesia: General Endotracheal-GETA Mental Status: Awake Pain Control: Satisfactory Nausea/Vomiting: None Hydration: Adequate Anesthesia-Related Issues: No Anes. Related Issues
--- NOTE | 2020-08-15 09:47 | HO.POSTANES ---
Post Anesthesia Evaluation Post Anesthesia Evaluation Vital Signs: Patient seen on 08/14/20 at 715am, VSS Anesthesia: General Endotracheal-GETA Mental Status: Awake Pain Control: Satisfactory Nausea/Vomiting: None Hydration: Adequate Anesthesia-Related Issues: No Anes. Related Issues
--- NOTE | 2020-08-15 09:49 | HO.POSTANES ---
Post Anesthesia Evaluation Post Anesthesia Evaluation Vital Signs: Patient seen on 08/14/20 at 730am, VSS Anesthesia: General Endotracheal-GETA Mental Status: Awake Pain Control: Satisfactory Nausea/Vomiting: None Hydration: Adequate Anesthesia-Related Issues: No Anes. Related Issues
== END 2020-08-14 13:11 | disposition home or self-care (01) | DRG 620 ==
LOC: HO.SSSA 06:11 → HO.S3 13:47
PROVIDERS: Physician Assistant; Admitting Provider Surgery; PCP Family Medicine; Visit Provider Surgery
PROC: 0D164ZA Bypass Stomach to Jejunum, Percutaneous Endoscopic Approach (ICD-10-PCS; principal; 2020-08-13 07:50)
DX: E66.01 Morbid (severe) obesity due to excess calories (principal); F31.81 Bipolar II disorder; Z68.41 Body mass index [BMI] 40.0-44.9, adult; E78.00 Pure hypercholesterolemia, unspecified; E03.9 Hypothyroidism, unspecified; K21.9 Gastro-esophageal reflux disease without esophagitis; Z20.822 Contact with and (suspected) exposure to COVID-19; I10 Essential (primary) hypertension; G47.30 Sleep apnea, unspecified; K44.9 Diaphragmatic hernia without obstruction or gangrene; Z88.0 Allergy status to penicillin; Z79.890 Hormone replacement therapy; Z79.899 Other long term (current) drug therapy
CPT/HCPCS: 36415; 80048; 81003; 81025; 82040; 84425; 85025; 85610; 85730; 86850; 86900; 87635; 93005; 99024; J0131; J1100; J1170; J2250; J2405; J2765; J3010

== ENCOUNTER → 2020-08-28 10:22 | Outpatient (BNVA) | payer OTHER, SELFPAY | PROVIDERS: PCP Family Medicine; Visit Provider Surgery ==

== ENCOUNTER → 2020-09-25 09:06 | Outpatient (BNVA) | payer OTHER, SELFPAY | PROVIDERS: PCP Family Medicine; Visit Provider Physician Assistant ==

== ENCOUNTER → 2020-10-16 08:12 | Outpatient (BNVA) | payer OTHER, SELFPAY | PROVIDERS: PCP Family Medicine; Visit Provider Dietitian, Registered | DX: E66.9 Obesity, unspecified (principal); Z68.34 Body mass index [BMI] 34.0-34.9, adult | CPT/HCPCS: 97803 ==

== ENCOUNTER → 2020-12-11 11:20 | Outpatient (BNVA) | payer OTHER, SELFPAY | PROVIDERS: PCP Family Medicine; Visit Provider Physician Assistant ==

== ENCOUNTER → 2021-02-05 12:57 | Outpatient (BNVA) | payer OTHER, SELFPAY | PROVIDERS: PCP Family Medicine; Visit Provider Surgery | DX: Z01.818 Encounter for other preprocedural examination (principal); K91.2 Postsurgical malabsorption, not elsewhere classified; Z90.3 Acquired absence of stomach [part of] ==

== ENCOUNTER → 2021-03-19 08:11 | Outpatient (BNVA) | payer OTHER, SELFPAY | PROVIDERS: PCP Family Medicine; Visit Provider Dietitian, Registered | DX: E66.3 Overweight (principal); Z68.27 Body mass index [BMI] 27.0-27.9, adult | CPT/HCPCS: 97803 ==

== ENCOUNTER 2021-03-30 11:40 | Outpatient (REF) | payer OTHER, SELFPAY ==
[2021-03-30 12:04] LABS: MANUAL DIFF FLAG NO
[2021-03-30 12:19] LABS: Basophils Percent Auto 0.5 % (0-2); Eosinophils Absolute Auto 0.1 X10*3/uL (0.0-0.4); Hematocrit 44.7 % (37.0-47.0); Hemoglobin 14.5 g/dl (12.0-16.0); Imm Gran Abs Auto 0.01 X10*3/uL (0.00-0.03); Imm Gran Pct Auto 0.2 % (0.0-0.4); Lymphocytes Absolute Auto 1.9 X10*3/uL (1.2-4.9); Lymphocytes Percent Auto 31.3 % (20-40); Mean Corpuscular HGB Conc 32.4 g/dl (31.0-35.0); Mean Corpuscular Hemoglobin 29.8 pg (27.0-33.0); Mean Corpuscular Volume 91.8 fL (80.0-98.0); Mean Platelet Volume 12.8 fL (9.4-12.3); Monocytes Absolute Auto 0.5 X10*3/uL (0.1-1.2); Monocytes Percent Auto 8.1 % (2-11); Neutrophils Absolute Auto 3.6 x10*3/uL (2.0-8.3); Neutrophils Percent Auto 57.9 % (45-73); Platelet Count 169 X10*3/uL (160-400); Red Blood Count 4.87 X10*6/uL (4.20-5.50); Red Cell Distribution Width 13.5 % (11.0-16.0); White Blood Count 6.1 X10*3/uL (4.8-10.8)
[2021-03-30 12:40] LABS: Alanine Aminotransferase 38 U/L (0-31); Albumin Level 4.1 g/dL (3.5-5.0); Alkaline Phosphatase 99 U/L (39-117); Anion Gap 12 (12-20); Aspartate Amino Transferase 39 U/L (5-31); Bilirubin Total 0.9 mg/dL (0.0-1.0); Blood Urea Nitrogen 14 mg/dL (9-16); Calcium 9.7 mg/dL (8.4-10.2); Carbon Dioxide 27 mmol/L (22-29); Chloride 107 mmol/L (96-108); Cholesterol 167 mg/dL; Estimated Glomerular Filt Rate > 60; Glucose Fasting 90 mg/dL (60-99); HDL Cholesterol 43 mg/dL; Iron 128 mcg/dL (30-160); LDL Cholesterol Calculated 107 mg/dl; Percent Iron Saturation 49 % (15-50); Potassium 4.3 mmol/L (3.3-5.1); Sodium 142 mmol/L (135-145); Total Iron Binding Capacity 262 mcg/dL (228-428); Total Protein 6.9 g/dL (6.5-8.0); Triglycerides 86 mg/dL; Unsaturated Iron Binding 134 ug/dL
[2021-03-30 12:55] LABS: Thyroid Stimulating Hormone 2.16 uIU/mL (0.32-4.0)
[2021-03-30 12:58] LABS: Estimated Average Glucose 97 mg/dL; Hemoglobin A1C 149.7319 umol/L
[2021-03-30 13:20] LABS: Vitamin B12 734 pg/mL (200-900)
[2021-04-02 07:02] LABS: Zinc 75 mcg/dL (60-130)
[2021-04-03 00:56] LABS: Vitamin A 37 mcg/dL (38-98)
[2021-04-03 06:05] LABS: Vitamin B1 15 nmol/L (8-30)
== END 2021-03-30 11:41 | disposition home or self-care (01) ==
LOC: HO.LAB 11:40
PROVIDERS: Visit Provider Surgery
DX: Z01.818 Encounter for other preprocedural examination (principal); K91.2 Postsurgical malabsorption, not elsewhere classified; Z90.3 Acquired absence of stomach [part of]
CPT/HCPCS: 36415; 80053; 80061; 82306; 82607; 83036; 83540; 84425; 84443; 84590; 84630; 85025; 86140

== ENCOUNTER 2021-08-26 13:48 | Outpatient (REF) | payer OTHER, SELFPAY ==
[2021-08-26 15:43] LABS: Imm Gran Abs Auto 0.02 X10*3/uL (0.00-0.03); Red Blood Count 4.67 X10*6/uL (4.20-5.50); Red Cell Distribution Width 13.2 % (11.0-16.0); SCAN SMEAR FLAG 1
[2021-08-26 15:45] LABS: Basophils Percent Auto 0.4 % (0-2); Eosinophils Absolute Auto 0.1 X10*3/uL (0.0-0.4); Eosinophils Percent Auto 1.6 % (0-4); Hematocrit 41.5 % (37.0-47.0); Hemoglobin 13.5 g/dl (12.0-16.0); Imm Gran Pct Auto 0.2 % (0.0-0.4); Lymphocytes Absolute Auto 2.5 X10*3/uL (1.2-4.9); Lymphocytes Percent Auto 30.9 % (20-40); MANUAL DIFF FLAG SCAN; Mean Corpuscular HGB Conc 32.5 g/dl (31.0-35.0); Mean Corpuscular Hemoglobin 28.9 pg (27.0-33.0); Mean Corpuscular Volume 88.9 fL (80.0-98.0); Mean Platelet Volume 12.9 fL (9.4-12.3); Monocytes Absolute Auto 0.6 X10*3/uL (0.1-1.2); Neutrophils Absolute Auto 4.9 x10*3/uL (2.0-8.3); Neutrophils Percent Auto 59.9 % (45-73); Platelet Count 167 X10*3/uL (160-400); White Blood Count 8.2 X10*3/uL (4.8-10.8)
[2021-08-26 15:57] LABS: PLT ABN DIST 1
[2021-08-26 16:02] LABS: Anion Gap 12 (12-20); Blood Urea Nitrogen 23 mg/dL (9-16); Calcium 9.4 mg/dL (8.4-10.2); Carbon Dioxide 28 mmol/L (22-29); Chloride 103 mmol/L (96-108); Estimated Glomerular Filt Rate > 60; Glucose Random 91 mg/dL (60-115); Iron 72 mcg/dL (30-160); Percent Iron Saturation 24 % (15-50); Potassium 4.2 mmol/L (3.3-5.1); Sodium 139 mmol/L (135-145); Total Iron Binding Capacity 304 mcg/dL (228-428); Unsaturated Iron Binding 232 ug/dL
[2021-08-26 16:26] LABS: Ferritin 210 ng/mL (10-250); TSH reflex Free T4 3.03 uIU/mL (0.32-4.0); Vitamin D 25-OH Total 35.7 ng/mL (>30)
[2021-08-26 16:42] LABS: SLIDE REVIEW VERIFIED
[2021-08-26 16:59] LABS: Folate 16.8 ng/mL (> or = 4.0); Vitamin B12 529 pg/mL (200-900)
[2021-08-29 16:41] LABS: Zinc 48 mcg/dL (60-130)
[2021-08-29 20:57] LABS: Vitamin A 40 mcg/dL (38-98)
[2021-08-31 10:56] LABS: Vitamin B1 27 nmol/L (8-30)
== END 2021-08-26 13:49 | disposition home or self-care (01) ==
LOC: HO.LAB 13:48
PROVIDERS: PCP Family Medicine; Visit Provider Physician Assistant Surgical
DX: E66.3 Overweight (principal); Z71.3 Dietary counseling and surveillance; Z68.26 Body mass index [BMI] 26.0-26.9, adult
CPT/HCPCS: 36415; 80048; 82306; 82607; 82728; 82746; 83540; 84425; 84443; 84590; 84630; 85025

== ENCOUNTER 2022-12-30 11:55 | Outpatient (AMB) | payer OTHER, SELFPAY ==
--- NOTE | 2022-12-30 12:17 | A.OFFVIS_ITS ---
Intake VS Expanded 12/30/22 12:25 Height 5 ft 6.5 in Weight 198 lb BMI 31.5 BP 122/74 Blood Pressure Location Rt brachial Blood Pressure Position Sitting Pulse 71 Pulse Source Pulse Oximeter Temp 97.5 F Temperature Source Tympanic Pulse Oximetry 94 Oxygen Delivery Method Room Air Body Fat 81.0 Body Fat Percentage 40.9 Free Fat Mass 117.0 Muscle Mass 111.2 Visceral Mass 10.0 Water Mass 83.4 BMR 1,616 Intake Visit Reasons: (OV) PO GBP 08/13/2020 Police Officer Crime Prevention Required: No Allergies amoxicillin Allergy (Mild, Verified 12/30/22 12:23) Hives hydrochlorothiazide Adverse Reaction (Mild, Verified 12/30/22 12:23) elevated creatinine Medication List - Last Reconciled 12/30/22 by DELFIN Hernandez calcium citrate 1,000 mg PO DAILY cariprazine (Vraylar) 1.5 mg PO DAILY [Celebrate MVI PO] fluoxetine 40 mg PO DAILY levothyroxine 50 mcg PO DAILY lorazepam 0.5 mg PO DAILY PRN pantoprazole 40 mg PO DAILY quetiapine (Seroquel) 150 mg PO BEDTIME HPI HPI Comments History of Present Illness Details This?a?52?yo female who is s/p GBP on?08/13/[address] Cole. Presents for 2 year, 4 month post op visit. Weight today is 198 pounds, with a BMI today of 31.5.? She had been dealing with the of her mother who just about 1 year ago. She began smoking cannabis but noticed this caused weight gain and she has since stopped (10 days ago). Not following any meal plan Has [employer]ife 30 gm rtd shakes at home. Present meal plan includes: cheerios w whole milk, blueberries hot dog chips protein bar pure protein 20 gm drinking 64 oz water daily, ? Exercise routine includes: going to join [facility] gym Any post op complications: none VENESSA: resolved DM: resolved HTN: never Hyperlipidemia: resolved GERD:?0-5 scale ??0 = no symptoms ??1 = symptoms noticeable but not bothersome 2 =symptoms bothersome but not daily ? 3 = symptoms bothersome and daily 4 = symptoms affect daily activities 5 = symptoms are incapacitating, unable to do daily activities ? How bad is the heartburn: 0 ? Heartburn while lying down: 0 ? Heartburn when standing up: 0 ? Heartburn after meals: 0 ? Does heartburn change your diet: 0 ? Does heartburn wake you up from sleep: 0 ? Do you have difficulty swallowin ? Do you have pain with swallowin ? If you take medicine for your reflux, does this affect your daily life: 0 Satisfaction with present condition - satisfied or not satisfied: not satisfied [facility] Medical History Bipolar II disorder BMI 36.0-36.9,adult BMI 40.0-44.9, adult Class 2 obesity with body mass index (BMI) of 36.0 to 36.9 in adult COVID-19 vaccine administered Elevated cholesterol Endometriosis GERD (gastroesophageal reflux disease) Hiatal hernia HTN (hypertension) Hypothyroidism Intestinal malabsorption following gastrectomy Obesity with body mass index (BMI) of 30.0 to 39.9 Obstructive sleep apnea Preoperative examination Shortness of breath Vitamin B1 deficiency Surgical History History of repair of hiatal hernia Hx laparoscopic cholecystectomy Hx of hysterectomy S/P gastric bypass Family History Father Chronic emphysema syndrome High cholesterol Prediabetes Mother Multiple sclerosis Hypertension Brother Heart attack High cholesterol Social History Are you a primary career portals teacher to a significant other at home: No Do you presently have visiting nurse or other home services: No Alcohol intake: current Alcohol intake frequency: holidays/special occasions only Patient Tobacco Use Status: Never used Tobacco service: No Current occupational status: employed Review of Systems Const All systems reviewed & are unremarkable except as noted in HPI and below Physical Exam Const General: cooperative and no acute distress Orientation/consciousness: patient oriented x3 Resp Effort & Inspection: normal respiratory effort Auscultation: clear to auscultation bilaterally Cardio Rate: regular rate Rhythm: regular rhythm GI Inspection: Yes normal to inspection and Yes incision (well healed) Palpation (GI): Soft to palpation and no masses Neuro General: patient oriented x3 Assessment & Plan Assessment & Plan (1) Obesity with body mass index (BMI) of 30.0 to 39.9: Code(s): E66.9 - Obesity, unspecified Plan: 1/2 fairlife shake x 2 1/2 Pure Protein bar x 2 meal 3 oz protein and 3 oz veg Exercise weight then cardio w goal 300 rk burned daily Check yearly labs rtc 2 months with goal of 16 pound weight loss Orders: Orders Vitamin B12 and Folate Today E66.9 - Obesity, unspecified, K91.2 - Postsurgical malabsorption, not elsewhere classified, Z90.3 - Acquired absence of stomach [part of], Z98.84 - Bariatric surgery status Basic Metabolic Panel Today E66.9 - Obesity, unspecified, K91.2 - Postsurgical malabsorption, not elsewhere classified, Z90.3 - Acquired absence of stomach [part of], Z98.84 - Bariatric surgery status C Reactive Protein Today E66.9 - Obesity, unspecified, K91.2 - Postsurgical malabsorption, not elsewhere classified, Z90.3 - Acquired absence of stomach [part of], Z98.84 - Bariatric surgery status Ferritin Today E66.9 - Obesity, unspecified, K91.2 - Postsurgical malabsorption, not elsewhere classified, Z90.3 - Acquired absence of stomach [part of], Z98.84 - Bariatric surgery status Hemoglobin A1c Today E66.9 - Obesity, unspecified, K91.2 - Postsurgical malabsorption, not elsewhere classified, Z90.3 - Acquired absence of stomach [part of], Z98.84 - Bariatric surgery status Insulin Today E66.9 - Obesity, unspecified, K91.2 - Postsurgical malabsorption, not elsewhere classified, Z90.3 - Acquired absence of stomach [part of], Z98.84 - Bariatric surgery status IRON PROFILE Today E66.9 - Obesity, unspecified, K91.2 - Postsurgical malabsorption, not elsewhere classified, Z90.3 - Acquired absence of stomach [part of], Z98.84 - Bariatric surgery status Lipid Panel Today E66.9 - Obesity, unspecified, K91.2 - Postsurgical malabsorption, not elsewhere classified, Z90.3 - Acquired absence of stomach [part of], Z98.84 - Bariatric surgery status PTHI Today E66.9 - Obesity, unspecified, K91.2 - Postsurgical malabsorption, not elsewhere classified, Z90.3 - Acquired absence of stomach [part of], Z98.84 - Bariatric surgery status TSH reflex Free T4 Today E66.9 - Obesity, unspecified, K91.2 - Postsurgical malabsorption, not elsewhere classified, Z90.3 - Acquired absence of stomach [part of], Z98.84 - Bariatric surgery status Vitamin A Today E66.9 - Obesity, unspecified, K91.2 - Postsurgical malabsorption, not elsewhere classified, Z90.3 - Acquired absence of stomach [part of], Z98.84 - Bariatric surgery status Vitamin B1 Today E66.9 - Obesity, unspecified, K91.2 - Postsurgical malabsorption, not elsewhere classified, Z90.3 - Acquired absence of stomach [part of], Z98.84 - Bariatric surgery status Vitamin D 25-OH Total Today E66.9 - Obesity, unspecified, K91.2 - Postsurgical malabsorption, not elsewhere classified, Z90.3 - Acquired absence of stomach [part of], Z98.84 - Bariatric surgery status Zinc Today E66.9 - Obesity, unspecified, K91.2 - Postsurgical malabsorption, not elsewhere classified, Z90.3 - Acquired absence of stomach [part of], Z98.84 - Bariatric surgery status Complete Blood Count Auto Diff Today E66.9 - Obesity, unspecified, K91.2 - Postsurgical malabsorption, not elsewhere classified, Z90.3 - Acquired absence of stomach [part of], Z98.84 - Bariatric surgery status Coding Level of Care Code Est Pt Level 4 (64656) Diagnoses Obesity with body mass index (BMI) of 30.0 to 39.9 E66.9
--- NOTE | 2022-12-30 12:17 | MHC.OFFVIS ---
Intake Intake Visit Reasons: (OV) PO GBP 08/13/2020 Allergies amoxicillin Allergy (Mild, Verified 08/26/21 14:02) Hives hydrochlorothiazide Adverse Reaction (Mild, Verified 08/26/21 14:02) elevated creatinine PFSH Medical History Bipolar II disorder BMI 36.0-36.9,adult BMI 40.0-44.9, adult Class 2 obesity with body mass index (BMI) of 36.0 to 36.9 in adult COVID-19 vaccine administered Elevated cholesterol Endometriosis GERD (gastroesophageal reflux disease) Hiatal hernia HTN (hypertension) Hypothyroidism Intestinal malabsorption following gastrectomy Obesity with body mass index (BMI) of 30.0 to 39.9 Obstructive sleep apnea Preoperative examination Shortness of breath Vitamin B1 deficiency Surgical History History of repair of hiatal hernia Hx laparoscopic cholecystectomy Hx of hysterectomy S/P gastric bypass Family History Father Chronic emphysema syndrome High cholesterol Prediabetes Mother Multiple sclerosis Hypertension Brother Heart attack High cholesterol Social History Are you a primary [employer] aide teacher to a significant other at home: No Do you presently have visiting nurse or other home services: No Alcohol intake: current Alcohol intake frequency: holidays/special occasions only Patient Tobacco Use Status: Never used Tobacco service: No Current occupational status: employed Coding Diagnoses
[2022-12-30 12:25] VITALS: BP 122/74; PULSE 71; TEMP 36.4; O2SAT 94; BMI 31.5
== END 2022-12-30 13:00 | disposition home or self-care (01) ==
PROVIDERS: PCP Family Medicine; Visit Provider Physician Assistant Surgical
DX: E66.9 Obesity, unspecified (principal)
CPT/HCPCS: 99214

== ENCOUNTER → 2022-12-30 11:55 | Outpatient (BNVA) | payer OTHER, SELFPAY | PROVIDERS: PCP Family Medicine; Visit Provider Physician Assistant Surgical ==

== ENCOUNTER 2023-01-01 07:30 | Outpatient (REF) | payer OTHER, SELFPAY ==
[2023-01-01 07:59] LABS: MANUAL DIFF FLAG NO
[2023-01-01 08:29] LABS: Basophils Absolute Auto 0.1 X10*3/uL (0.0-0.2); Basophils Percent Auto 0.6 % (0-2); Eosinophils Absolute Auto 0.2 X10*3/uL (0.0-0.4); Eosinophils Percent Auto 2.6 % (0-4); Hematocrit 43.1 % (37.0-47.0); Hemoglobin 14.3 g/dl (12.0-16.0); Imm Gran Abs Auto 0.02 X10*3/uL (0.00-0.03); Imm Gran Pct Auto 0.2 % (0.0-0.4); Lymphocytes Absolute Auto 1.6 X10*3/uL (1.2-4.9); Lymphocytes Percent Auto 19.7 % (20-40); Mean Corpuscular HGB Conc 33.2 g/dl (31.0-35.0); Mean Corpuscular Hemoglobin 28.8 pg (27.0-33.0); Mean Corpuscular Volume 86.7 fL (80.0-98.0); Mean Platelet Volume 12.7 fL (9.4-12.3); Monocytes Absolute Auto 0.7 X10*3/uL (0.1-1.2); Neutrophils Absolute Auto 5.7 x10*3/uL (2.0-8.3); Neutrophils Percent Auto 68.9 % (45-73); Platelet Count 195 X10*3/uL (160-400); Red Blood Count 4.97 X10*6/uL (4.20-5.50); Red Cell Distribution Width 13.3 % (11.0-16.0); White Blood Count 8.2 X10*3/uL (4.8-10.8)
[2023-01-01 09:13] LABS: Anion Gap 17 (12-20); Blood Urea Nitrogen 23 mg/dL (9-16); C Reactive Protein 0.78 mg/dL (< or = 0.50); Calcium 9.8 mg/dL (8.4-10.2); Carbon Dioxide 22 mmol/L (22-29); Chloride 102 mmol/L (96-108); Cholesterol 213 mg/dL (<200); Estimated Glomerular Filt Rate > 60; Glucose Random 87 mg/dL (60-115); HDL Cholesterol 55 mg/dL (>40); Iron 58 mcg/dL (30-160); LDL Cholesterol Calculated 143 mg/dL (<100); Percent Iron Saturation 19 % (15-50); Potassium 3.7 mmol/L (3.3-5.1); Sodium 137 mmol/L (135-145); Total Iron Binding Capacity 304 mcg/dL (228-428); Triglycerides 77 mg/dL (<150); Unsaturated Iron Binding 246 ug/dL
[2023-01-01 09:14] LABS: Estimated Average Glucose 94 mg/dL; Hemoglobin A1c % 4.9 % (<6.0)
[2023-01-01 09:41] LABS: Folate 14.5 ng/mL (> or = 4.0); Vitamin B12 543 pg/mL (200-900)
[2023-01-01 10:32] LABS: Vitamin D 25-OH Total 28.2 ng/mL (>30)
[2023-01-01 11:30] LABS: Ferritin 168 ng/mL (10-250); Free T4 (Free Thyroxine) 0.89 ng/dL (0.71-1.85)
[2023-01-01 15:51] LABS: Insulin 6 uU/mL (2-29)
[2023-01-02 14:59] LABS: Calcium (PTHI) 9.5 mg/dL (8.6-10.4); PTHI 84 pg/mL (16-77)
[2023-01-05 02:10] LABS: Zinc 63 mcg/dL (60-130)
[2023-01-06 00:23] LABS: Vitamin A 63 mcg/dL (38-98)
[2023-01-06 15:09] LABS: Vitamin B1 20 nmol/L (8-30)
== END 2023-01-01 07:31 | disposition home or self-care (01) ==
LOC: HO.LAB 07:30
PROVIDERS: PCP Family Medicine; Visit Provider Physician Assistant Surgical
DX: E66.9 Obesity, unspecified (principal); K91.2 Postsurgical malabsorption, not elsewhere classified; Z98.84 Bariatric surgery status; Z90.3 Acquired absence of stomach [part of]; E03.9 Hypothyroidism, unspecified
CPT/HCPCS: 36415; 80048; 80061; 82306; 82607; 82728; 82746; 83036; 83525; 83540; 83970; 84425; 84439; 84443; 84590; 84630; 85025; 86140